=== PATIENT | male | born 1980 | race Caucasian/White ===

== ENCOUNTER 2025-04-16 00:17 | Emergency (ER) | payer BC, SELFPAY ==
[2025-04-16 00:19] VITALS: BP 146/91
[2025-04-16 00:54] VITALS: BP 152/81
[2025-04-16 00:56] LABS: ALT (SGPT) 25 U/L (0-50); AST (SGOT) 23 U/L (17-59); Albumin 4.5 g/dl (3.5-5.0); Alkaline Phosphatase 66 U/L (38-126); Blood Urea Nitrogen 17 mg/dl (9-20); Calcium 9.4 mg/dl (8.4-10.2); Carbon Dioxide 24 mmol/L (22-30); Chloride 109 mmol/L (98-107); Glucose 100 mg/dl (70-99); Potassium 4.0 mmol/L (3.5-5.1); Sodium 138 mmol/L (135-145); Total Protein 7.6 g/dl (6.3-8.2); eGFR > 60.00
[2025-04-16 01:00] VITALS: BP 142/76
[2025-04-16 01:00] LABS: Troponin I < 0.012 ng/ml
[2025-04-16 01:12] VITALS: BMI 35.0
[2025-04-16 01:16] LABS: Hematocrit 42.7 % (39.0-52.0); Hemoglobin 14.3 g/dL (13.0-18.0); Mean Corp Hgb Conc. 33.5 g/dL (33.0-37.0); Mean Corpuscular Volume 84.6 fL (80.0-94.0); Nucleated Red Blood Cells % 0 % (-); Platelet Count 253 10^3/uL (130-400); Red Cell Dist. Width 13.4 % (11.5-14.5)
[2025-04-16 02:02] VITALS: BP 139/78
--- NOTE | 2025-04-16 02:03 | ED.GENMED ---
History of Present Illness
General
Chief Complaint: Heart Rate Problem
Source: patient
Exam Limitations: none
Time Seen by Provider: 04/16/25 01:06
Nursing documentation reviewed up to this point in time: agreed with
History of Present Illness
History of Present Illness:
45-year-old male presenting to the emergency department today with concern palpitations erratic heart rate over the past week or so. Has slightly worsened this evening. Claims that he does sometimes have anxiety and thinks this could be
influencing on arrival here denies any specific chest does claim to still have some sensation of palpitations. Denies any fevers or recent illness. No history of heart disease recent trauma surgery immobilization.
Review of Systems
Review of Systems
Allergies reviewed?: Yes
All Other Systems: ROS reviewed and negative except as documented in HPI and ROS
Phy Exam
Physical Exam
Physical Exam:
GENERAL: Alert , in no apparent distress
EYE: pupils equal and reactive
NECK: Supple, no significant adenopathy.
ENT: o/p clr, mmm.
CARDIAC: Regular rate and rhythm .
LUNGS: Clear breath sounds bilaterally, no acute respiratory distress, no wheezes/rales/rhonchi
ABDOMEN: Soft, without focal tenderness, no r/g, no cvat
NEUROLOGICAL: Alert and oriented, no focal neuro deficits
SKIN: Warm and dry, skin intact.
MUSCULOSKELETAL: No edema, well perfused.
PSYCH: Normal and appropriate interaction.
Course
Orders/Labs/Results
Orders:
Orders
04/16/25 00:21
Electrocardiogram (*1) Urgent
Reason for Study: Chest Pain
EKG- Treatment ONCE
04/16/25 00:29
Complete Blood Count/With Diff Urgent
Comprehensive Metabolic Panel Urgent
Troponin I Urgent
04/16/25 01:39
Chest [CR Chest - 2 Views ] Urgent
Comment:
Reason For Exam: chest pain
Abnormal Lab Results
04/16/25
00:29
Abs Immat Gran (auto) 0.1 H 10^3/uL
(0-0.05)
Absolute Monos (auto) 0.7 H 10^3/uL
(0.1-0.6)
Immature Gran % 0.7 H %
(0-0.5)
Monocytes % 9.6 H %
(1.7-9.3)
Chloride 109 H mmol/L
(98-107)
Glucose 100 H mg/dl
(70-99)
04/16/25 00:29
04/16/25 00:29
Vital Signs
Initial and Last Documented VS:
Initial Vital Signs
Temp Pulse Resp BP Pulse Ox
97.9 F 85 16 146/91 99
04/16/25 00:19 04/16/25 00:19 04/16/25 00:19 04/16/25 00:19 04/16/25 00:19
Last Documented Vital Signs
Temp Pulse Resp BP Pulse Ox
97.9 F 77 15 142/76 95
04/16/25 00:19 04/16/25 01:45 04/16/25 01:45 04/16/25 01:00 04/16/25 02:06
MDM/Problems Addressed
MDM/Problems Addressed:
45-year-old male presenting to the emergency department today with concerns of palpitations over the past week or so. On arrival heart rate is normal EKG is normal pulse ox is normal and respiratory rate is normal labs are obtained without acute
abnormalities. EKG is normal. Patient has no risk factors for PE and is PERC negative. PE very unlikely at this point. Otherwise no signs of emergent process could be associated with anxiety advised for close outpatient follow-up for further
assessment of patient's symptoms. Return precautions given.
*Pulse Oximetry
SaO2: 95
Oxygen Mode of Delivery: Room air
Patient hypoxic: no (95)
*Critical Care Note
Total Time (30-74mins, 75-104mins- exclusive of procedures): Not Applicable
ED Attending Note
-
Portions of this chart may have been created with voice recognition software.� Occasional wrong word or��sound alike� substitutions may have occurred due to the inherent limitations of voice recognition software.
Discharge Plan
Departure
Patient Disposition: Home (Routine Discharge)
Date of Disposition: 04/16/25
Time of Disposition: 02:05
Patient with high blood pressure during this ER visit?: No
Condition: Good
Covid-19: Not Applicable
Discharge Problem:
Palpitations
Instructions: Palpitations (DC), Chest Pain DCA Follow Up
Referrals:
[facility] [Provider Group] - Follow up in 2-3 days
NONE,* [Family Provider, Internal Medicine]
Activity Restrictions/Additional Instructions:
You came to the emergency department today with concerns of palpitations. You had a reassuring assessment. Please follow-up closely. Return for any worsening, new or concerning symptoms.
Interventions
Interventions:
*Risk Screen - Suicide Last Done: 04/16/25 00:19
*General Assessment Last Done: 04/16/25 00:19
*Neglect/Abuse Screening Last Done: 04/16/25 00:19
*ED- Fall Risk Assessment Last Done: 04/16/25 00:25
*ED COVID-19 Vaccine History Last Done: 04/16/25 00:25
ED- Cardiac Assessment Last Done: 04/16/25 00:25
ED- Pulmonary Assessment Last Done: 04/16/25 00:25
Discharge Date and Time
Print Language: CYPRIOT
== END 2025-04-16 02:52 | disposition home or self-care (01) ==
LOC: EMR 00:17
PROVIDERS: EMERGENCY PHYSICIAN Student in an Organized Health Care Education/Training Program
DX: R00.2 Palpitations (principal); R07.89 Other chest pain
CPT/HCPCS: 99285; 71046; 80053; 84484; 85025; 93005